=== PATIENT | female | born 1980 | race Caucasian/White ===

== ENCOUNTER 2017-08-14 21:25 | Emergency (ER) | payer MEDICAID ==
[2017-08-14 21:56] LABS: BILIRUBIN,URINE NEGATIVE (NEGATIVE); GLUCOSE, URINE (UA) NEGATIVE (NEGATIVE); KETONES,URINE (UA) NEGATIVE (NEGATIVE); LEUKOCYTE ESTERASE, URINE MODERATE (NEGATIVE); NITRITE,URINE POSITIVE (NEGATIVE); OCCULT BLOOD,URINE LARGE (NEGATIVE); PROTEIN,URINE >=300 mg/dL (NEGATIVE); UROBILINOGEN,URINE 0.2 (NORMAL) E.U./dL (NORMAL)
[2017-08-14 22:00] LABS: CLARITY,URINE CLOUDY (CLEAR)
[2017-08-14 22:01] LABS: HCG UR QUAL NEGATIVE
[2017-08-14] MEDS ORDERED: KETOROLAC 60 MG/2 ML VIAL IVP STA (22:03)
[2017-08-14] MEDS ORDERED: SODIUM CHLORIDE 0.9% 1,000 ML IV ONE (22:03)
[2017-08-14 22:05] LABS: BACTERIA,URINE Moderate /HPF (None Seen); RBC,URINE TNTC /HPF (0-5); SQUAMOUS EPITHELIAL CELL,UR RARE Squamous (<= Few)
--- NOTE | 2017-08-14 22:17 | ED Physician Documentation ---
PD HPI FEMALE - Stated complaint Stated Complaint: SIDE/BACK PX - Chief complaint Chief Complaint: Abd Pain - History obtained from History obtained from: Patient - History of Present Illness Timing - onset: Yesterday Timing - details: Gradual onset, Still present Associated symptoms: Pelvic pain, Urinary frequency Similar symptoms before: Work up / diagnostics Recently seen: Not recently seen - Additional information Additional information: Patient is a 36 year old female with a history of multiple stones who is presenting to the emergency department right sided pain. patient states that it has been going on for the last couple of days. Patient reports that it feel different than her previous stones but she had to have surgery on stones in the past. Review of Systems Constitutional: denies: Fever, Chills Eyes: reports: Reviewed and negative Ears: reports: Reviewed and negative Nose: reports: Reviewed and negative Throat: reports: Reviewed and negative Cardiac: reports: Reviewed and negative Respiratory: reports: Reviewed and negative GI: reports: Abdominal Pain. denies: Nausea, Vomiting : reports: Dysuria, Frequency, Hematuria Musculoskeletal: reports: Reviewed and negative Neurologic: reports: Reviewed and negative Immunocompromised: denies: Immunocompromised PD PAST MEDICAL HISTORY - Past Surgical History Past Surgical History: Yes - Present Medications Home Medications: Ambulatory Orders Medication Instructions Recorded Confirmed Levofloxacin [Levaquin] 750 mg PO DAILY #4 tablet 08/15/17 - Allergies Allergies/Adverse Reactions: Allergies Allergy/AdvReac Type Severity Reaction Status Date / Time No Known Drug Allergies Allergy Verified 08/14/17 22:36 - Social History Does the pt smoke?: Yes Smoking Status: Current every day smoker Does the pt drink ETOH?: No Does the pt have substance abuse?: No PD ED PE NORMAL - Vitals Vital signs reviewed: Yes - General General: Alert and oriented X 3 - HEENT HEENT: Atraumatic, PERRL - Neck Neck: Supple, no meningeal sign - Cardiac Cardiac: RRR, No murmur - Respiratory Respiratory: No respiratory distress - Derm Derm: Normal color, Warm and dry - Extremities Extremities: No deformity - Neuro Neuro: Alert and oriented X 3, No motor deficit Eye Opening: Spontaneous Motor: Obeys Commands Verbal: Oriented GCS Score: 15 - Psych Psych: Normal mood PD ED PE EXPANDED - HEENT HEENT: Dry mucous membranes - Abdomen Abdomen: Tender to palpation, RLQ. No: Rebound, Guarding Results - Vitals Vitals: Vital Signs - 24 hr 08/14/17 08/14/17 08/14/17 21:36 22:30 23:41 Temperature 36.0 C L Heart Rate 83 80 84 Respiratory 16 18 16 Rate Blood Pressure 144/95 H 135/82 H 135/65 H O2 Saturation 100 98 98 Oxygen O2 Source Room air - Labs Labs: Laboratory Tests 08/14/17 08/14/17 08/14/17 21:10 21:10 21:48 WBC 15.0 H RBC 5.08 Hgb 14.1 Hct 43.2 MCV 85.1 MCH 27.8 MCHC 32.7 RDW 14.7 Plt Count 217 MPV 7.3 L Neut # 12.4 H Lymph # 1.4 L [place] # 0.9 Eos # 0.2 Baso # 0.1 Absolute Nucleated RBC 0.00 Nucleated RBC % 0.0 Sodium 134 L Potassium 3.9 Chloride 104 Carbon Dioxide 23 Anion Gap 7.0 BUN 19 Creatinine 1.2 H Estimated GFR (MDRD) 51 L Glucose 107 H Calcium 10.2 Total Bilirubin 0.7 AST 21 ALT 22 Alkaline Phosphatase 54 Total Protein 7.1 Albumin 4.1 Globulin 3.0 Albumin/Globulin Ratio 1.4 Lipase 37 Urine Color YELLOW Urine Clarity CLOUDY Urine pH 6.0 Ur Specific [place] >=1.030 H Urine Protein >=300 H Urine Glucose (UA) NEGATIVE Urine Ketones NEGATIVE Urine Occult Blood LARGE H Urine Nitrite POSITIVE H Urine Bilirubin NEGATIVE Urine Urobilinogen 0.2 (NORMAL) Ur Leukocyte Esterase MODERATE H Urine RBC TNTC H Urine WBC >25 H Ur Squamous Epith Cells RARE Squamous Urine Bacteria Moderate H Ur Microscopic Review INDICATED Urine Culture Comments INDICATED Urine HCG, Qual 08/14/17 21:48 WBC RBC Hgb Hct MCV MCH MCHC RDW Plt Count MPV Neut # Lymph # [place] # Eos # Baso # Absolute Nucleated RBC Nucleated RBC % Sodium Potassium Chloride Carbon Dioxide Anion Gap BUN Creatinine Estimated GFR (MDRD) Glucose Calcium Total Bilirubin AST ALT Alkaline Phosphatase Total Protein Albumin Globulin Albumin/Globulin Ratio Lipase Urine Color Urine Clarity Urine pH Ur Specific [place] >=1.030 H Urine Protein Urine Glucose (UA) Urine Ketones Urine Occult Blood Urine Nitrite Urine Bilirubin Urine Urobilinogen Ur Leukocyte Esterase Urine RBC Urine WBC Ur Squamous Epith Cells Urine Bacteria Ur Microscopic Review Urine Culture Comments Urine HCG, Qual NEGATIVE - Rads (name of study) ct abdomen and pelvis Radiology: Final report received (right sided 5 by 6mm obstructing stone with hydro) PD MEDICAL DECISION MAKING - ED course Complexity details: reviewed old records, reviewed results, re-evaluated patient , considered differential, d/w patient, d/w family, d/w systems management consultant ED course: Patient was seen and examined at bedside. urine was collected and was consistent with urinary tract infection. Due to patient's history CT and blood work were ordered. Patient was treated with a fluid bolus and toradol. when patient returned from imaging patient was found to have a right sided obstructing stone. Patient was treated with a dose of levaquin and urology was consulted. Case was discussed with DR. Harry who recommended antibiotics and follow up in the office tomorrow. Patient felt comfortable with the plan. Patient was able to tolerate PO without difficulty. patient was stable for discharge with outpatient follow up. Departure - Departure Disposition: 01 Home, Self Care Clinical Impression: Urinary tract infectious disease, Kidney stones Instructions: ED Stone Renal W Colic Follow-Up: Ana Harry MD [Physician No Access] - Tomorrow Prescriptions: Levofloxacin [Levaquin] 750 mg PO DAILY #4 tablet Comments: Your symptoms today are being caused by a kidney stone causing obstructions and a urinary tract infection. You have been started on antibiotics tonight and you will take them once daily. It is important that you call Dr. Harry's office tomorrow to schedule a prompt follow up. You may return to the emergency department at any time for new, worsening or uncontrollable symptoms.
[2017-08-14 22:25] LABS: BASOPHILS # (AUTO) 0.1 10^3/uL (0.0-0.1); BASOPHILS % (AUTO) 0.4 %; EOSINOPHILS # (AUTO) 0.2 10^3/uL (0.0-0.7); EOSINOPHILS % (AUTO) 1.1 %; HGB - HEMOGLOBIN 14.1 g/dL (12.0-16.0); LYMPHOCYTES # (AUTO) 1.4 10^3/uL (1.5-3.5); LYMPHOCYTES % (AUTO) 9.6 %; MEAN CORPUSCULAR HEMOGLOBIN 27.8 pg (27.0-31.0); MEAN CORPUSCULAR HGB CONC 32.7 g/dL (32.0-36.0); MEAN CORPUSCULAR VOLUME 85.1 fL (81.0-99.0); MEAN PLATELET VOLUME 7.3 fL (7.9-10.8); MONOCYTES # (AUTO) 0.9 10^3/uL (0.0-1.0); MONOCYTES % (AUTO) 5.8 %; NEUTROPHILS # (AUTO) 12.4 10^3/uL (1.5-6.6); NEUTROPHILS % (AUTO) 83.1 %; PLT - PLATELET COUNT 217 10^3/uL (130-450); RED BLOOD COUNT 5.08 10^6/uL (4.20-5.40); RED CELL DISTRIBUTION WIDTH 14.7 % (12.0-15.0)
[2017-08-14 22:35] LABS: ALBUMIN 4.1 g/dL (3.2-5.5); ALBUMIN/GLOBULIN RATIO 1.4 (1.0-2.2); BILIRUBIN,TOTAL 0.7 mg/dL (0.2-1.0); CALCIUM 10.2 mg/dL (8.5-10.3); CREATININE 1.2 mg/dL (0.4-1.0); TOTAL PROTEIN 7.1 g/dL (6.7-8.2)
--- NOTE | 2017-08-14 22:45 | CT Report ---
EXAM: CT ABDOMEN AND PELVIS (CT KUB) EXAM DATE: 08/14/2017 10:29 PM. CLINICAL HISTORY: Multiple stones, left sided pain. COMPARISONS: None. TECHNIQUE: Routine axial helical CT imaging was performed through the abdomen and pelvis without IV c ontrast. Reconstructions: Coronal and sagittal. In accordance with CT protocol optimization, one or more of the following dose reduction techniques w ere utilized for this exam: automated exposure control, adjustment of mA and/or KV based on patient s ize, or use of iterative reconstructive technique. FINDINGS: Lung Bases: Mild bibasilar atelectasis. Right Kidney/Ureter: Nonobstructing 2 mm stone in the kidney, series 3 image 55. Moderate hydronephro sis and hydroureter with perinephric stranding. Ureteral stone just below the level of the iliac randall t measuring 6 x 5 mm, series 3 image 93. There are 2 small calcifications at the level of the sciatic notch, series 3 image 123 and 124. It is unclear whether either of these is in the ureter. Left Kidney/Ureter: No stones are seen in the kidney or ureter. No obstructive uropathy seen on the l eft. Other Solid Organs: Noncontrast images of the solid organs are grossly unremarkable. Gallbladder/Bile Ducts: Calcified stones in the gallbladder. No obvious cholecystitis. Peritoneal Cavity: No bowel obstruction seen. No diverticulitis. Moderate stool in the right hemicolo n. No lymphadenopathy seen. No free air or free fluid. Pelvic Organs: Right ovarian cyst measuring 2.4 cm. Left ovarian cyst measuring 7.7 x 6.3 cm. Visuali zed pelvic organs are otherwise unremarkable. Vasculature: Unremarkable. Other: None. IMPRESSION: 1. Severe obstructive uropathy on the right. There is a 6 x 5 mm ureteral stone just below the level of the iliac crest. There may be another smaller stone more distally in the ureter but this is not de finite. 2. Nonobstructing 2 mm stone in the right kidney. 3. No urolithiasis or obstructive uropathy seen on the left. 4. Left ovarian cyst measuring 7.7 x 6.3 cm. 5. Right ovarian cyst measuring 2.4 cm. 6. Calcified stones in the gallbladder without obvious cholecystitis. [facility] Referring Provider Line: [phone] SITE ID: [id number]
[2017-08-14] MEDS ORDERED: levoFLOXacin 750 MG/150 ML 750 MG/150 ML BAG IV STA (22:57)
[2017-08-15 00:49] VITALS: BP 133/77
== END 2017-08-15 00:50 | disposition home or self-care (01) ==
LOC: ED 21:25
DX: N39.0 Urinary tract infection, site not specified (principal); N13.2 Hydronephrosis with renal and ureteral calculous obstruction; F17.200 Nicotine dependence, unspecified, uncomplicated
CPT/HCPCS: 36415; 74176; 80053; 81001; 81003; 81025; 83690; 85025; 87086; 96361; 96365; 96375; 99284; 99285

== ENCOUNTER 2019-01-18 14:32 | Outpatient (CLI) | payer MEDICAID | END 2019-01-18 14:33 | disposition EMS.NT | LOC: EMS 14:32 | PROVIDERS: ATTEND Surgery | DX: M25.512 Pain in left shoulder (principal); V89.2XXA Person injured in unspecified motor-vehicle accident, traffic, initial encounter; Y92.410 Unspecified street and highway as the place of occurrence of the external cause ==

== ENCOUNTER 2020-03-28 17:33 | Emergency (ER) | payer MEDICAID ==
[2020-03-28] MEDS ORDERED: KETOROLAC 30 MG/ML VIAL IVP STA (18:01)
[2020-03-28] MEDS ORDERED: SODIUM CHLORIDE 0.9% 1,000 ML IV STA (18:01)
[2020-03-28 18:05] LABS: BILIRUBIN,URINE NEGATIVE (NEGATIVE); GLUCOSE, URINE (UA) NEGATIVE (NEGATIVE); KETONES,URINE (UA) NEGATIVE (NEGATIVE); LEUKOCYTE ESTERASE, URINE SMALL (NEGATIVE); NITRITE,URINE NEGATIVE (NEGATIVE); OCCULT BLOOD,URINE LARGE (NEGATIVE); PROTEIN,URINE TRACE mg/dL (NEGATIVE); UROBILINOGEN,URINE 1 (NORMAL) E.U./dL (NORMAL)
[2020-03-28 18:14] LABS: CLARITY,URINE HAZY (CLEAR)
--- NOTE | 2020-03-28 18:17 | ED Physician Documentation ---
PD HPI ABD PAIN - Stated complaint Stated Complaint: FLANK/BACK PX/FEMALE - Chief complaint Chief Complaint: Abd Pain - History obtained from History obtained from: Patient - History of Present Illness Timing - onset: How many days ago (4) Timing - duration: Days (4) Timing - details: Abrupt onset, Still present Quality: Sharp, Pain Location: RUQ Radiation: Right flank Improved by: Meds Worsened by: Other (nothing) Associated symptoms: Nausea. No: Fever, Vomiting, Diarrhea, Constipation Similar symptoms before: Diagnosis (ureterolithiasis) Recently seen: Emergency Dept - Additional information Additional information: 39-year-old female with a history of ureteral lithiasis has developed acute flank pain 4 days ago. She was seen at [facility] emergency department and given pain medication prior to being seen and when she was not seen in a timely fashion she left. She states that she has been having pain all weekend and pain is intolerable. She has an appointment to see her urologist on the of this month. She feels she cannot wait that long. She feels that the right side is "clogged ". Review of Systems Constitutional: denies: Fever Eyes: denies: Decreased vision Ears: denies: Ear pain Nose: denies: Congestion Throat: denies: Sore throat Cardiac: denies: Chest pain / pressure, Palpitations Respiratory: denies: Dyspnea, Cough GI: reports: Abdominal Pain, Nausea. denies: Vomiting : denies: Dysuria, Frequency Skin: denies: Rash Musculoskeletal: reports: Back pain. denies: Neck pain, Extremity pain PD PAST MEDICAL HISTORY - Past Surgical History Past Surgical History: Yes - Present Medications Home Medications: Ambulatory Orders Medication Instructions Recorded Confirmed levoFLOXacin [Levaquin] 750 mg PO DAILY #4 tablet 08/15/17 - Allergies Allergies/Adverse Reactions: Allergies Allergy/AdvReac Type Severity Reaction Status Date / Time No Known Drug Allergies Allergy Verified 03/28/20 17:42 - Social History Does the pt smoke?: Yes Smoking Status: Current every day smoker Does the pt drink ETOH?: No Does the pt have substance abuse?: No - Immunizations Immunizations are current?: Yes PD ED PE NORMAL - Vitals Vital signs reviewed: Yes (Hypertensive) - General General: Alert and oriented X 3, No acute distress, Well developed/nourished - HEENT HEENT: Atraumatic, PERRL, EOMI - Neck Neck: Supple, no meningeal sign, No bony TTP - Cardiac Cardiac: RRR, No murmur - Respiratory Respiratory: No respiratory distress, Clear bilaterally - Abdomen Abdomen: Normal bowel sounds, Soft, Non tender, Non distended, No organomegaly - Back Back: No CVA TTP, No spinal TTP - Derm Derm: Normal color, Warm and dry, No rash - Extremities Extremities: No deformity, No edema - Neuro Neuro: Alert and oriented X 3, 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, No motor deficit, No sensory deficit, Normal speech Eye Opening: Spontaneous Motor: Obeys Commands Verbal: Oriented GCS Score: 15 - Psych Psych: Normal mood, Normal affect Results - Vitals Vitals: Vital Signs - 24 hr 03/28/20 03/28/20 17:37 19:42 Temperature 37.2 C Heart Rate 98 82 Respiratory 20 16 Rate Blood Pressure 162/103 H 149/93 H O2 Saturation 100 100 Oxygen O2 Source Room air - Labs Labs: Laboratory Tests 03/28/20 03/28/20 03/28/20 17:49 18:10 18:10 WBC 10.4 RBC 4.59 Hgb 13.6 Hct 40.5 MCV 88.2 MCH 29.6 MCHC 33.6 RDW 13.0 Plt Count 279 MPV 8.8 Neut # (Auto) 7.7 H Lymph # (Auto) 1.5 [place] # (Auto) 0.9 Eos # (Auto) 0.2 Baso # (Auto) 0.0 Absolute Nucleated RBC 0.00 Nucleated RBC % 0.0 Sodium 135 Potassium 3.8 Chloride 102 Carbon Dioxide 24 Anion Gap 9.0 BUN 17 Creatinine 1.2 H Estimated GFR (MDRD) 50 L Glucose 96 Calcium 10.0 Total Bilirubin 0.9 AST 16 ALT 24 Alkaline Phosphatase 58 Total Protein 7.5 Albumin 3.7 Globulin 3.8 Albumin/Globulin Ratio 1.0 Lipase 40 Urine Color YELLOW Urine Clarity HAZY Urine pH 6.0 Ur Specific [place] 1.025 Urine Protein TRACE Urine Glucose (UA) NEGATIVE Urine Ketones NEGATIVE Urine Occult Blood LARGE H Urine Nitrite NEGATIVE Urine Bilirubin NEGATIVE Urine Urobilinogen 1 (NORMAL) Ur Leukocyte Esterase SMALL H Urine RBC 11-25 H Urine WBC >25 H Ur Squamous Epith Cells MANY Squamous H Urine Bacteria Moderate H Ur Microscopic Review INDICATED Urine Culture Comments NOT INDICATED Procedures - Bedside sono Bedside sono by EMP: With the use of bedside ultrasound the right kidney is imaged there is marked an d obvious hydronephrosis and hydroureter and this is mildly sonographically tender. PD MEDICAL DECISION MAKING - ED course Complexity details: reviewed old records, reviewed results, re-evaluated patient, considered differential, d/w patient, d/w family ED course: 39-year-old female with acute right ureteral lithiasis is administered saline and Toradol and a CT scan is ordered. She has marked hydro and an 8mm stone in the distal ureter. She has creatinine of 1.1 and a normal WBC and she responds to treatment with improvement in her pain. Her urine appears infected with >25WBC/hpf. At shift change care is turned over to Dr. Flowers with anticipation of consultation with urology.
[2020-03-28 18:19] LABS: BASOPHILS % (AUTO) 0.4 %; EOSINOPHILS # (AUTO) 0.2 10^3/uL (0.0-0.7); EOSINOPHILS % (AUTO) 1.8 %; HGB - HEMOGLOBIN 13.6 g/dL (12.0-16.0); LYMPHOCYTES # (AUTO) 1.5 10^3/uL (1.5-3.5); LYMPHOCYTES % (AUTO) 14.4 %; MEAN CORPUSCULAR HEMOGLOBIN 29.6 pg (27.0-31.0); MEAN CORPUSCULAR HGB CONC 33.6 g/dL (32.0-36.0); MEAN CORPUSCULAR VOLUME 88.2 fL (81.0-99.0); MEAN PLATELET VOLUME 8.8 fL (7.9-10.8); MONOCYTES # (AUTO) 0.9 10^3/uL (0.0-1.0); MONOCYTES % (AUTO) 8.8 %; NEUTROPHILS # (AUTO) 7.7 10^3/uL (1.5-6.6); NEUTROPHILS % (AUTO) 74.1 %; PLT - PLATELET COUNT 279 10^3/uL (130-450); RED BLOOD COUNT 4.59 10^6/uL (4.20-5.40); WHITE BLOOD COUNT 10.4 x10^3/uL (4.8-10.8)
[2020-03-28 18:25] LABS: BACTERIA,URINE Moderate /HPF (None Seen); SQUAMOUS EPITHELIAL CELL,UR MANY Squamous (<= Few)
[2020-03-28 18:32] LABS: ALBUMIN 3.7 g/dL (3.2-5.5); BILIRUBIN,TOTAL 0.9 mg/dL (0.2-1.0); CREATININE 1.2 mg/dL (0.4-1.0); TOTAL PROTEIN 7.5 g/dL (6.7-8.2)
--- NOTE | 2020-03-28 20:04 | CT Report ---
PROCEDURE: Abdomen/Pelvis WO INDICATIONS: suspected R sided stone marked hydro on bedside TECHNIQUE: Noncontrast 5 mm thick sections acquired from the diaphragms to the symphysis. 5 mm coronal and sagi ttal reformats were then performed. For radiation dose reduction, the following was used: automated exposure control, adjustment of mA and/or kV according to patient size. COMPARISON: CT abdomen pelvis 08/14/2017. FINDINGS: Image quality: Excellent. ABDOMEN: Lung bases: There is mild dependent atelectasis bilaterally. Heart size is normal. Solid organs: Noncontrast evaluation of liver demonstrates no focal hepatic lesions. There is a calc ified gallstone in the gallbladder without wall thickening or pericholecystic fluid. Slightly increas ed density within the gallbladder lumen is suggestive of biliary sludge. Pancreas is normal in contou rs. There is nodular thickening of the left adrenal gland which appears similar to the prior study. There is severe right hydroureteronephrosis. The distal right ureter is not well visualized due to ad jacent bowel loops but there is a calcification in the right pelvis measuring up to 8 mm suggestive o f a distal obstructing stone. This demonstrates attenuation values of approximately 2048-0318 Hounsfi eld units. There is associated perinephric and perirenal fat stranding as well as marked right cortic al thinning. Left kidney demonstrates no hydronephrosis or left renal stones. Left ureter is nondiste nded. Peritoneum and bowel: Unenhanced bowel loops demonstrate normal wall thickness and caliber. No free fluid or air. Nodes and vessels: No retroperitoneal or mesenteric adenopathy by size criteria. There are prominen t retroperitoneal lymph nodes measuring up to 0.9 cm. Aorta and inferior vena cava are normal in iva cj. Miscellaneous: No ventral hernias. PELVIS: Genitourinary: Bladder wall thickness is normal. There is a large thin-walled cysts redemonstrated w ithin the left hemipelvis measuring up to approximately 6.9 x 5.7 cm. Miscellaneous: No inguinal hernias or adenopathy. Bones: No suspicious bony lesions. No vertebral body compression fractures. IMPRESSION: 1. Severe right hydronephrosis with a possible 8 mm distal ureteral obstructing stone in the right he mipelvis. However, evaluation is limited due to adjacent bowel loops in the pelvis. 2. Marked right renal cortical thinning. Given the severe hydronephrosis seen on prior CT, the findin gs are suggestive of a chronic or recurrent obstruction. Consider follow-up evaluation with CT IVP. 3. Large cystic lesion redemonstrated in the left hemipelvis. This appears similar in size compared t o the prior study. Consider follow-up evaluation with pelvic ultrasound. 4. Cholelithiasis without evidence of cholecystitis. Reviewed by: Haider Chisholm MD on 03/28/2020 8:03 PM PST Approved by: Haider Chisholm MD on 03/28/2020 8:03 PM PST Station ID: [id number]
--- NOTE | 2020-03-28 20:23 | ED Physician Documentation ---
ED Addendum - Addendum Addendum: 03/28/20 20:21 Patient endorsed to me by Dr. Rajput pending urology recommendations. D[facility]ed [facility] urologyp[facility] with stable GFR and creatinine. 8 mm stone with moderate hydronephrosis with urinary tract infection. Per Dr. Wallace recommendations, okay to discharge on outpatient antibiotics and Flomax. Patient will need to follow-up in clinic for lithotripsy.Discussed with patient who is aware for need for follow-up. Strict return precautions given.
[2020-03-28 20:40] VITALS: BP 155/99
== END 2020-03-28 20:40 | disposition home or self-care (01) ==
LOC: ED 17:33
DX: N13.2 Hydronephrosis with renal and ureteral calculous obstruction (principal); N39.0 Urinary tract infection, site not specified; R03.0 Elevated blood-pressure reading, without diagnosis of hypertension; F17.200 Nicotine dependence, unspecified, uncomplicated
CPT/HCPCS: 36415; 74176; 80053; 81001; 81003; 83690; 85025; 87086; 96361; 96374; 99284

== ENCOUNTER 2020-04-09 03:27 | Emergency (ER) | payer MEDICAID ==
--- NOTE | 2020-04-09 03:56 | ED Physician Documentation ---
PD HPI ABD PAIN - Stated complaint Stated Complaint: ABD PAIN - Chief complaint Chief Complaint: Abd Pain - History obtained from History obtained from: Patient - History of Present Illness Timing - onset: How many hours ago (1) Timing - duration: Hours (1) Timing - details: Abrupt onset, Constant (gradually improving since onset) Pain level max: 8 Pain level now: 2 Quality: Pain Location: RUQ Radiation: Other (no radiation) Improved by: Other (no ameliorating factors) Worsened by: Other (no exacerbating factors) Associated symptoms: Nausea. No: Fever, Vomiting Recently seen: Emergency Dept (T+R 03/28/2020 for right flank pain, CT demonstrated large right ureteral stone with severe hydronephrosis. also noted were gallstone and left pelvic cyst. Patient says the pain tonight is not the same in location nor of the same quality/character) Review of Systems Constitutional: denies: Fever, Chills, Sweats Cardiac: reports: Reviewed and negative Respiratory: reports: Reviewed and negative GI: reports: Abdominal Pain, Nausea. denies: Vomiting, Constipation, Diarrhea : denies: Dysuria, Frequency, Hematuria PD PAST MEDICAL HISTORY - Past Medical History Past Medical History: Yes GI: Cholelithiasis, Other : Kidney stones Other Past Medical History: gall stones, kidney stones - Past Surgical History Past Surgical History: Yes - Present Medications Home Medications: Ambulatory Orders Medication Instructions Recorded Confirmed No Known Home Medications 04/09/20 04/09/20 - Allergies Allergies/Adverse Reactions: Allergies Allergy/AdvReac Type Severity Reaction Status Date / Time No Known Drug Allergies Allergy Verified 04/09/20 03:33 - Social History Does the pt smoke?: Yes Smoking Status: Current every day smoker Does the pt drink ETOH?: No Does the pt have substance abuse?: Yes Substance Use and Type: Marijuana - Immunizations Immunizations are current?: Yes PD ED PE NORMAL - Vitals Vital signs reviewed: Yes - General General: Alert and oriented X 3, No acute distress, Well developed/nourished - Cardiac Cardiac: RRR, No murmur - Respiratory Respiratory: No respiratory distress, Clear bilaterally - Abdomen Abdomen: Soft, Non distended, Other (mild RUQ tenderness without rebound or guarding) - Back Back: No CVA TTP Results - Vitals Vitals: Oxygen O2 Source Room air - Labs Labs: Laboratory Tests 04/09/20 04/09/20 04/09/20 03:35 03:56 03:56 WBC 11.0 H RBC 4.87 Hgb 14.0 Hct 43.2 MCV 88.7 MCH 28.7 MCHC 32.4 RDW 13.0 Plt Count 400 MPV 8.9 Neut # (Auto) 7.7 H Lymph # (Auto) 2.6 [place] # (Auto) 0.5 Eos # (Auto) 0.2 Baso # (Auto) 0.0 Absolute Nucleated RBC 0.00 Nucleated RBC % 0.0 Sodium 139 Potassium 3.8 Chloride 103 Carbon Dioxide 23 Anion Gap 13.0 BUN 18 Creatinine 1.3 H Estimated GFR (MDRD) 46 L Glucose 106 H Calcium 9.9 Total Bilirubin 0.5 AST 20 ALT 25 Alkaline Phosphatase 65 Total Protein 7.5 Albumin 3.8 Globulin 3.7 Albumin/Globulin Ratio 1.0 Lipase 23 Urine Color YELLOW Urine Clarity CLEAR Urine pH 8.0 H Ur Specific [place] 1.020 Urine Protein NEGATIVE Urine Glucose (UA) NEGATIVE Urine Ketones NEGATIVE Urine Occult Blood NEGATIVE Urine Nitrite NEGATIVE Urine Bilirubin NEGATIVE Urine Urobilinogen 0.2 (NORMAL) Ur Leukocyte Esterase NEGATIVE Ur Microscopic Review NOT INDICATED Urine Culture Comments NOT INDICATED - Rads (name of study) CT A/P Radiology: Prelim report reviewed, See rad report RUQ US Radiology: Prelim report reviewed, See rad report PD MEDICAL DECISION MAKING - ED course Complexity details: reviewed results, re-evaluated patient, considered differential, d/w patient ED course: patient's pain had improved significantly prior to this evaluation, although she describes 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 She declined pain medication. CT demonstrates no evidence of the 8mm right ureteral calculus seen on previous study as well as significant improvement in the right-sided hydroureter and hydronephrosis. Her symptom location/HPI is s/o biliary colic which can be evaluated in outpatient setting at this point provided symptoms do not recur. Departure - Departure Disposition: 01 Home, Self Care Clinical Impression: Biliary colic Condition: Good Instructions: ED Gallstone W Biliary Colic Follow-Up: Bakari Cruz MD [Provider Admit Priv/Credential] - Discharge Date/Time: 04/09/20 07:00
[2020-04-09 04:40] LABS: BASOPHILS % (AUTO) 0.4 %; EOSINOPHILS # (AUTO) 0.2 10^3/uL (0.0-0.7); EOSINOPHILS % (AUTO) 1.5 %; LYMPHOCYTES # (AUTO) 2.6 10^3/uL (1.5-3.5); LYMPHOCYTES % (AUTO) 23.3 %; MEAN CORPUSCULAR HEMOGLOBIN 28.7 pg (27.0-31.0); MEAN CORPUSCULAR HGB CONC 32.4 g/dL (32.0-36.0); MEAN CORPUSCULAR VOLUME 88.7 fL (81.0-99.0); MEAN PLATELET VOLUME 8.9 fL (7.9-10.8); MONOCYTES # (AUTO) 0.5 10^3/uL (0.0-1.0); MONOCYTES % (AUTO) 4.5 %; NEUTROPHILS # (AUTO) 7.7 10^3/uL (1.5-6.6); NEUTROPHILS % (AUTO) 69.7 %; PLT - PLATELET COUNT 400 10^3/uL (130-450); RED BLOOD COUNT 4.87 10^6/uL (4.20-5.40)
[2020-04-09 04:49] LABS: BILIRUBIN,URINE NEGATIVE (NEGATIVE); GLUCOSE, URINE (UA) NEGATIVE (NEGATIVE); KETONES,URINE (UA) NEGATIVE (NEGATIVE); LEUKOCYTE ESTERASE, URINE NEGATIVE (NEGATIVE); NITRITE,URINE NEGATIVE (NEGATIVE); OCCULT BLOOD,URINE NEGATIVE (NEGATIVE); PROTEIN,URINE NEGATIVE (NEGATIVE); UROBILINOGEN,URINE 0.2 (NORMAL) E.U./dL (NORMAL)
[2020-04-09 04:50] LABS: CLARITY,URINE CLEAR (CLEAR)
[2020-04-09 04:50] LABS: ALBUMIN 3.8 g/dL (3.2-5.5); BILIRUBIN,TOTAL 0.5 mg/dL (0.2-1.0); CALCIUM 9.9 mg/dL (8.5-10.3); CREATININE 1.3 mg/dL (0.4-1.0); TOTAL PROTEIN 7.5 g/dL (6.7-8.2)
[2020-04-09 07:10] VITALS: BP 152/100
--- NOTE | 2020-04-09 07:37 | CT Report ---
PROCEDURE: Abdomen/Pelvis WO INDICATIONS: RUQ pain, recent CT showed severe right hydro, TECHNIQUE: Noncontrast 5 mm thick sections acquired from the diaphragms to the symphysis. 5 mm coronal and sagi ttal reformats were then performed. For radiation dose reduction, the following was used: automated exposure control, adjustment of mA and/or kV according to patient size. COMPARISON: 03/28/2020 FINDINGS: Image quality: Excellent. ABDOMEN: Lung bases: Lung bases are clear. Heart size is normal. Solid organs: Liver and spleen are normal in size. Gallbladder is distended and contains a few ston es dependently layering, some of the fundus, some possibly in the neck, the largest peripherally calc ified measures about 2 cm. No visible choledocholithiasis. Pancreas is normal in contours. No adren al nodules. The right kidney is relatively diminutive. There has been decrease and prior right hydronephrosis wit h mild to moderate persistent right hydroureter and urothelial thickening. Interval passage of right distal ureteral stone. No left intrarenal calculi. Peritoneum and bowel: Unenhanced bowel loops demonstrate normal wall thickness and caliber. Increas ed quantity of dense stool throughout the colon. The appendix appears normal. No free fluid or air. Nodes and vessels: No retroperitoneal or mesenteric adenopathy by size criteria. Aorta and inferior vena cava are normal in caliber. Miscellaneous: No ventral hernias. PELVIS: Genitourinary: Bladder wall thickness is normal. Retroverted uterus. Left adnexal cystic mass decre ased size measuring 6.0 cm, previously 7.8 cm. Miscellaneous: No inguinal hernias or adenopathy. Bones: No suspicious bony lesions. No vertebral body compression fractures. IMPRESSION: 1. Interval passage of right ureteral calculus and decreased right hydronephrosis. 2. Cholelithiasis without CT findings of acute cholecystitis. 3. Increased quantity of colonic stool. 4. Decreased size of left adnexal cystic mass, presumably ovarian. 5. Concordant with preliminary report. Reviewed by: Emilie Kenny MD on 04/09/2020 7:36 AM PST Approved by: Emilie Kenny MD on 04/09/2020 7:36 AM PST Station ID: [id number]
--- NOTE | 2020-04-09 07:43 | Ultrasound Report ---
PROCEDURE: Abdomen Limited INDICATIONS: RUQ pain TECHNIQUE: Real-time focused scanning was performed of the abdomen, with image documentation. COMPARISON: Correlation made to CT scan performed the same day. FINDINGS: The liver is at the upper limits of normal in size measuring 18.7 cm in length. Mildly hyp erechoic hepatic parenchyma. No discrete mass. The gallbladder contains a 2.2 cm stone in the fundus and a moderate amount of sludge. The gallbladde r wall is at the upper limits of normal in thickness measuring 3.3 cm maximally, likely an over measu rement. The common hepatic duct is enlarged at 10.9 mm, however the common bile duct is normal calibe r at 6.5 mm. No visible choledocholithiasis on this exam. No pericholecystic fluid and no sonographic Shaw's sign. The right kidney is diminutive. The cortex is echogenic and there is mild hydronephrosis as seen by C T. The visible portion of the proximal pancreas is normal. IMPRESSION: 1. Cholelithiasis and sludge without convincing sonographic signs of acute cholecystitis. 2. Dilated common hepatic duct normal caliber common bile duct. This is nonspecific and potentially p hysiologic 3.. Hyperechoic and mildly enlarged liver suggesting mild hepatic steatosis or other intrinsic liver disease. 4. Chronically diminutive right kidney with decreasing right hydronephrosis. 5. Concordant with preliminary report. Reviewed by: Emilie Kenny MD on 04/09/2020 7:42 AM PST Approved by: Emilie Kenny MD on 04/09/2020 7:42 AM PST Station ID: [id number]
== END 2020-04-09 07:00 | disposition home or self-care (01) ==
LOC: ED 03:27
DX: K80.50 Calculus of bile duct without cholangitis or cholecystitis without obstruction (principal); F17.200 Nicotine dependence, unspecified, uncomplicated
CPT/HCPCS: 36415; 74176; 76705; 80053; 81001; 81003; 83690; 85025; 87086; 99284

== ENCOUNTER 2020-10-10 19:14 | Inpatient (IN) | payer MEDICAID ==
[2020-10-10 19:35] LABS: BILIRUBIN,URINE NEGATIVE (NEGATIVE); GLUCOSE, URINE (UA) NEGATIVE (NEGATIVE); KETONES,URINE (UA) NEGATIVE (NEGATIVE); LEUKOCYTE ESTERASE, URINE SMALL (NEGATIVE); NITRITE,URINE POSITIVE (NEGATIVE); OCCULT BLOOD,URINE MODERATE (NEGATIVE); PROTEIN,URINE 30 mg/dL (NEGATIVE); UROBILINOGEN,URINE 0.2 (NORMAL) E.U./dL (NORMAL)
[2020-10-10 19:38] LABS: CLARITY,URINE CLOUDY (CLEAR); HCG UR QUAL NEGATIVE
[2020-10-10 19:45] LABS: BACTERIA,URINE Many /HPF (None Seen); SQUAMOUS EPITHELIAL CELL,UR FEW Squamous (<= Few); WBC,URINE >25 /HPF (0-5)
[2020-10-10 19:54] LABS: BASOPHILS # (AUTO) 0.1 10^3/uL (0.0-0.1); BASOPHILS % (AUTO) 0.3 %; EOSINOPHILS % (AUTO) 0.1 %; HCT - HEMATOCRIT 47.4 % (37.0-47.0); HGB - HEMOGLOBIN 15.6 g/dL (12.0-16.0); LYMPHOCYTES # (AUTO) 0.9 10^3/uL (1.5-3.5); LYMPHOCYTES % (AUTO) 4.6 %; MEAN CORPUSCULAR HEMOGLOBIN 28.9 pg (27.0-31.0); MEAN CORPUSCULAR HGB CONC 32.9 g/dL (32.0-36.0); MEAN CORPUSCULAR VOLUME 87.9 fL (81.0-99.0); MONOCYTES # (AUTO) 0.9 10^3/uL (0.0-1.0); NEUTROPHILS # (AUTO) 16.6 10^3/uL (1.5-6.6); NEUTROPHILS % (AUTO) 89.2 %; PLT - PLATELET COUNT 240 10^3/uL (130-450); RED BLOOD COUNT 5.39 10^6/uL (4.20-5.40); RED CELL DISTRIBUTION WIDTH 13.6 % (12.0-15.0); WHITE BLOOD COUNT 18.6 x10^3/uL (4.8-10.8)
[2020-10-10] MEDS ORDERED: SODIUM CHLORIDE 0.9% 1,000 ML IV STA ×2 (19:57→21:43)
[2020-10-10] MEDS ORDERED: cefTRIAXone 1 GM in SODIUM CHLORIDE 0.9% MINIBAG 100 ML IV STA (19:57)
--- NOTE | 2020-10-10 20:00 | ED Physician Documentation ---
History of Present Illness - Stated complaint Stated Complaint: CHILLS/FEVER/EXCESSIVE URINATION - Chief complaint Chief Complaint: Abd Pain - History obtained from History obtained from: Patient, Family - History of Present Illness Timing: How many days ago (3) - Additonal information Additional information: 40-year-old female has developed urinary urgency frequency dysuria and foul- smelling urine and she has developed left-sided flank pain. She had an episode of flank pain lasting 5 to 6 hours 2 days ago. She said this was similar to what she is had previously with kidney stone. 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 She does have chills which have made her emotional. She does not know if she has had a fever. Review of Systems Constitutional: reports: Chills, Myalgias, Fatigue. denies: Fever Eyes: denies: Decreased vision Ears: denies: Ear pain Nose: denies: Congestion Throat: denies: Sore throat Cardiac: denies: Chest pain / pressure, Palpitations Respiratory: denies: Dyspnea GI: reports: Abdominal Pain, Nausea. denies: Vomiting : reports: Dysuria, Frequency Skin: denies: Rash Musculoskeletal: reports: Back pain. denies: Neck pain, Extremity pain Neurologic: denies: Generalized weakness, Focal weakness, Numbness PD PAST MEDICAL HISTORY - Past Medical History GI: Cholelithiasis, Other : Kidney stones - Past Surgical History Past Surgical History: Yes - Present Medications Home Medications: Ambulatory Orders Medication Instructions Recorded Confirmed Lisinopril [Prinivil] 5 mg PO DAILY 10/10/20 10/10/20 - Allergies Allergies/Adverse Reactions: Allergies Allergy/AdvReac Type Severity Reaction Status Date / Time No Known Drug Allergies Allergy Verified 04/09/20 03:33 - Social History Does the pt smoke?: Yes Smoking Status: Current every day smoker Does the pt drink ETOH?: No Does the pt have substance abuse?: Yes - Immunizations Immunizations are current?: Yes PD ED PE NORMAL - Vitals Vital signs reviewed: Yes (Tachycardic and hypotensive with wide pulse pressure) - General General: Alert and oriented X 3, Well developed/nourished, Other (The patient appears emotionally distraught) - HEENT HEENT: Atraumatic, PERRL, EOMI - Neck Neck: Supple, no meningeal sign, No bony TTP - Cardiac Cardiac: No murmur, Other (Tachycardic to 120) - Respiratory Respiratory: No respiratory distress - Abdomen Abdomen: Soft, Non tender - Back Back: No CVA TTP, No spinal TTP - Derm Derm: Normal color, Warm and dry, No rash - Extremities Extremities: No deformity, No edema - Neuro Neuro: Alert and oriented X 3, marketing underwriter 2-12 intact, No motor deficit, No sensory deficit, Normal speech Eye Opening: Spontaneous Motor: Obeys Commands Verbal: Oriented GCS Score: 15 - Psych Psych: Normal affect, Other (The mood is anxious) Results - Vitals Vitals: Vital Signs - 24 hr 10/10/20 10/10/20 10/10/20 19:22 20:00 20:51 Temperature 37.6 C 38.2 C H Heart Rate 123 H 117 H 109 H Respiratory 19 32 H 22 Rate Blood Pressure 104/52 L 129/93 H 125/73 O2 Saturation 100 98 98 10/10/20 10/10/20 21:30 23:00 Temperature 38.1 C H 38.1 C H Heart Rate 108 H 109 H Respiratory 29 H 28 H Rate Blood Pressure 131/72 H 144/80 H O2 Saturation 98 98 Oxygen O2 Source Room air - Labs Labs: Laboratory Tests 10/10/20 10/10/20 10/10/20 19:20 19:40 19:40 WBC 18.6 H RBC 5.39 Hgb 15.6 Hct 47.4 H MCV 87.9 MCH 28.9 MCHC 32.9 RDW 13.6 Plt Count 240 MPV 9.0 Neut # (Auto) 16.6 H Lymph # (Auto) 0.9 L [place] # (Auto) 0.9 Eos # (Auto) 0.0 Baso # (Auto) 0.1 Absolute Nucleated RBC 0.00 Nucleated RBC % 0.0 PT INR APTT Sodium 133 L Potassium 3.8 Chloride 98 L Carbon Dioxide 22 Anion Gap 13.0 BUN 11 Creatinine 1.4 H Estimated GFR (MDRD) 42 L Glucose 133 H Lactic Acid Calcium 10.8 H Total Bilirubin 1.3 H AST 24 ALT 32 Alkaline Phosphatase 69 Total Protein 8.5 H Albumin 4.3 Globulin 4.2 Albumin/Globulin Ratio 1.0 Lipase 16 L CA 125 Antigen Urine Color YELLOW Urine Clarity CLOUDY Urine pH 6.0 Ur Specific Vian 1.025 Urine Protein 30 H Urine Glucose (UA) NEGATIVE Urine Ketones NEGATIVE Urine Occult Blood MODERATE H Urine Nitrite POSITIVE H Urine Bilirubin NEGATIVE Urine Urobilinogen 0.2 (NORMAL) Ur Leukocyte Esterase SMALL H Urine RBC 6-10 H Urine WBC >25 H Ur Squamous Epith Cells FEW Squamous Urine Bacteria Many H Ur Microscopic Review INDICATED Urine Culture Comments INDICATED Urine HCG, Qual NEGATIVE 10/10/20 10/10/20 10/10/20 19:40 19:40 20:28 WBC RBC Hgb Hct MCV MCH MCHC RDW Plt Count MPV Neut # (Auto) Lymph # (Auto) [place] # (Auto) Eos # (Auto) Baso # (Auto) Absolute Nucleated RBC Nucleated RBC % PT 14.8 H INR 1.4 H APTT 28.1 Sodium Potassium Chloride Carbon Dioxide Anion Gap BUN Creatinine Estimated GFR (MDRD) Glucose Lactic Acid 1.0 Calcium Total Bilirubin AST ALT Alkaline Phosphatase Total Protein Albumin Globulin Albumin/Globulin Ratio Lipase CA 125 Antigen 29.8 Urine Color Urine Clarity Urine pH Ur Specific Vian Urine Protein Urine Glucose (UA) Urine Ketones Urine Occult Blood Urine Nitrite Urine Bilirubin Urine Urobilinogen Ur Leukocyte Esterase Urine RBC Urine WBC Ur Squamous Epith Cells Urine Bacteria Ur Microscopic Review Urine Culture Comments Urine HCG, Qual - Rads (name of study) pelvic u/s Radiology: Prelim report reviewed (Impression: Complex bilateral ovarian cyst. This could represent endometriomas versus hemorrhagic cyst.), EMP read indepedently, See rad report Procedures - Bedside sono Bedside sono by EMP: With use bedside ultrasound the left kidney is imaged it is sonographically nontender and there is evidence of obvious hydronephrosis. - IVC sono (time) 1949 Bedside IVC sono: IVC measures (cm) (0.66), Dehydration (est 2-3 liter deficit) PD MEDICAL DECISION MAKING - ED course Complexity details: reviewed old records, reviewed results, re-evaluated patient, considered differential, d/w patient ED course: 40-year-old female with acute febrile illness with resolved left flank pain has elevated white count obvious infection of the urine and evidence of hydronephrosis to the left kidney on bedside ultrasound examination. She has a history of stone producing. A CT scan of the abdomen pelvis is undertaken to evaluate the possibility of stone causing the obstruction. The CT shows: CT ab/pel without: Impression: 1. Marked enlargement of the left adnexal cyst and relatively short period of time. Previously measured approximately 5 cm in diameter, now measures 10.7 cm in maximum diameter. 2. Interval development of moderate left hydronephrosis and hydroureter, likely secondary to extrinsic obstruction by this left adnexal cyst. 3. Interval increase in size of right adnexal cyst, measuring 4.9 cm in maximum diameter. 4. Small, shrunken right kidney with resolution of hydronephrosis. 5. Gallbladder neck stones with gallbladder distention and without gallbladder wall thickening. 6. Diffuse hepatic steatosis. 7. Mild hepatomegaly. 8. Interval development of borderline splenomegaly.Bilaterally Dr. Pro DIGITAL MARKETING INTERN has been consulted in the case and recommends a pelvic ultrasound be done with results above showing Bilateral complex ovarian cysts with the left being 10 x 8.4 x 9 cm and differential including endometrioma versus hemorrhagic cyst.Dr. Pro was consulted again following the results of the pelvic ultrasound and she recommends admission to the hospital for treatment of sepsis and consideration for surgery when her sepsis is improved. She is uncertain that the pelvic mass is are the cause of her hydronephrosis on the left side. Dr. Toan Ledbetter was consulted in the case and agrees to treat the patient's sepsis. In the emergency department the patient did receive 2 L of normal saline and 1 g of Rocephin intravenously Departure - Departure Disposition: 66 [facility] DC/Xfer Clinical Impression: Urinary tract infectious disease, Pelvic mass in female Sepsis Qualifiers: Sepsis type: sepsis due to unspecified organism Sepsis acute organ dysfunction status: with acute organ dysfunction Severe sepsis acute organ dysfunction type: acute renal failure Acute renal failure type: unspecified Severe sepsis shock status: without septic shock Qualified Code(s): A41.9 - Sepsis, unspecified organism Discharge Date/Time: 10/11/20 01:21
[2020-10-10 20:06] LABS: ALBUMIN 4.3 g/dL (3.2-5.5); BILIRUBIN,TOTAL 1.3 mg/dL (0.2-1.0); CALCIUM 10.8 mg/dL (8.5-10.3); CREATININE 1.4 mg/dL (0.4-1.0); POTASSIUM 3.8 mmol/L (3.5-5.0); TOTAL PROTEIN 8.5 g/dL (6.7-8.2)
[2020-10-10] MEDS ORDERED: cefTRIAXone 1 GM VIAL ONE (20:06)
[2020-10-10] MEDS ORDERED: ACETAMINOPHEN 325 MG TABLET PO STA (20:41)
--- NOTE | 2020-10-10 20:51 | CT Report ---
PROCEDURE: Abdomen/Pelvis WO INDICATIONS: L flank pain TECHNIQUE: Noncontrast 5 mm thick sections acquired from the diaphragms to the symphysis. 5 mm coronal and sagi ttal reformats were then performed. For radiation dose reduction, the following was used: automated exposure control, adjustment of mA and/or kV according to patient size. COMPARISON: Noncontrast CT of the abdomen and pelvis dated 04/09/2020. FINDINGS: Image quality: Excellent. ABDOMEN: Lung bases: Lung bases are clear. Heart size is normal. Solid organs: Diffuse hepatic steatosis. Mild hepatomegaly. Borderline splenomegaly. Spleen is slight ly larger than on the prior study. Gallbladder is again noted to contain stones in the gallbladder ne ck. The gallbladder is distended. There is no gallbladder wall thickening or fluid around the gallbla dder. Pancreas is normal in contours. No adrenal nodules. Right kidney: Small and shrunken. There is no longer hydronephrosis or hydroureter. Left kidney: Interval development of mild to moderate hydronephrosis and hydroureter. No ureteral sto ne identified. The distal ureter may be obstructed by a large left adnexal cyst which has either deve loped or has become significantly larger than on the previous study. Peritoneum and bowel: Unenhanced bowel loops demonstrate normal wall thickness and caliber. No free fluid or air. Nodes and vessels: No retroperitoneal or mesenteric adenopathy by size criteria. Aorta and inferior vena cava are normal in caliber. Miscellaneous: No ventral hernias. PELVIS: Genitourinary: Bladder wall thickness is normal. Miscellaneous: No inguinal hernias or adenopathy. A very large left adnexal cyst is now present. It appears to have been present on the previous study, measuring approximately 5 cm maximum diameter at that time. Currently it measures 10.3 x 9.2 x 10.7 cm. A right adnexal cyst has increased in size sin ce the previous study, and now measures 4.9 cm in diameter. Bones: No suspicious bony lesions. No vertebral body compression fractures. IMPRESSION: 1. Marked enlargement of the left adnexal cyst and a relatively short period of time. It previously m easured approximately 5 cm in diameter, and now measures 10.7 cm in maximum diameter. 2. Interval development of moderate left hydronephrosis and hydroureter, likely secondary to extrinsi c obstruction by this left adnexal cyst. 3. Interval increase in size of a right adnexal cyst, measuring 4.9 cm in maximum diameter. 4. Small, shrunken right kidney with resolution of hydronephrosis. 5. Gallbladder neck stones with gallbladder distention without gallbladder wall thickening. 6. Diffuse hepatic steatosis. 7. Mild hepatomegaly. 8. Interval development of borderline splenomegaly. Reviewed by: Cain Madrigal MD on 10/10/2020 8:49 PM PDT Approved by: Cain Madrigal MD on 10/10/2020 8:49 PM PDT Station ID: [id number]
[2020-10-10 21:19] LABS: INR 1.4 (0.8-1.2); PT - PROTHROMBIN TIME 14.8 secs (9.9-12.6)
[2020-10-10 21:26] LABS: PARTIAL THROMBOPLASTIN TIME 28.1 secs (24.9-33.3)
[2020-10-10] MEDS ORDERED: KETOROLAC 30 MG/ML VIAL IVP STA (23:10)
[2020-10-11] MEDS ORDERED: SODIUM CHLORIDE FLUSH 0.9% 10 ML SYRINGE IVP PRN (00:49)
[2020-10-11] MEDS ORDERED: ONDANSETRON 4 MG/2 ML VIAL IVP PRN (00:49)
[2020-10-11] MEDS ORDERED: HYDROcod/ACETAM 5/325 MG TABLET PO PRN (00:49)
--- NOTE | 2020-10-11 00:56 | HISTORY & PHYSICAL EXAMINATION ---
Chief Complaint - Chief Complaint Chief Complaint: chills, left flank pain History of Present Illness - Admitted From Admitted From:: [facility] ED - History Obtained From Records Reviewed: yes History obtained from: patient - History of Present Illness HPI Comment/Other: Patient is a 40-year-old female with medical history significant for hype rtension, history of kidney stones who presented to the ED with complaint of left flank pain and chills for the past 3 days. She has also been experiencing some urgency. Work-up in the ED showed a white blood cell count of 18.6. She had a temperature of 38.2 and was tachycardic with a heart rate of 117. Further work-up included a UA which was indicative of a UTI. As a result she was presented for admission for further treatment. At bedside she denies chest pain, dyspnea, abdominal pain, nausea, vomiting. Rest of her history is unremarkable. She had a CT of the abdomen/pelvis which was negative for stone but showed a large left adnexal/ovarian cyst measuring 10.7 cm in diameter. There was also a moderate amount of hydronephrosis on the left side thought to be secondary to obstruction by the cyst. 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 - Family & Social History Family History Comment/Other: Patient denied any significant family history Living arrangement: At home Living Situation: With family Social History Notes: She smokes about a pack of cigarettes daily. She does not consume alcohol. She uses marijuana occasionally. - POLST Patient has POLST: No POLST Status: Full Code Meds/Allgy - Home Medications Home Medications: Ambulatory Orders Medication Instructions Recorded Confirmed Lisinopril [Prinivil] 5 mg PO DAILY 10/10/20 10/10/20 - Allergies Allergies/Adverse Reactions: Allergies Allergy/AdvReac Type Severity Reaction Status Date / Time No Known Drug Allergies Allergy Verified 04/09/20 03:33 Review of Systems - Constitutional Constitutional: reports: Fever, Chills - Eyes Eyes: denies: Pain, Vision loss, Dipolpia - Ears, Nose & Throat Ears, Nose & Throat: denies: Ear pain, Sore throat - Cardiovascular Cariovascular: denies: Irregular heart rate, Palpitations, Chest pain, Edema, Lightheadedness, Syncope, Exertional dyspnea - Respiratory Respiratory: denies: Cough, Sputum production, Wheezing, SOB at rest, SOB with exertion - Gastrointestinal Gastrointestinal: denies: Abdominal pain, Abdominal distention, Constipation, Diarrhea, Black stools, Nausea, Vomiting, Coffee grounds emesis, Reflux/heartburn - Genitourinary Genitourinary: reports: Urgency, Flank pain - Musculoskeletal Musculoskeletal: denies: Muscle pain, Back pain, Muscle aches, Stiffness - Integumentary Integumentary: denies: Rash, Pruritis, Lesions, Dryness - Neurological Neurological: denies: General weakness, Focal weakness, Headache, Dizziness - Psychiatric Psychiatric: denies: Depression, Anxiety - Endocrine Endocrine: denies: Polyuria, Polydypsia - Hematologic/Lymphatic Hematologic/Lymphatic: denies: Anemia, Bruising, Petechiae Prior Level of Functionality: She is independent of activities of daily living Exam - Vital Signs Vital Signs: Vital Signs x48h Temp Pulse Resp BP Pulse Ox 10/10/20 23:00 38.1 C H 109 H 28 H 144/80 H 98 10/10/20 21:30 38.1 C H 108 H 29 H 131/72 H 98 10/10/20 20:51 38.2 C H 109 H 22 125/73 98 10/10/20 20:00 117 H 32 H 129/93 H 98 10/10/20 19:22 37.6 C 123 H 19 104/52 L 100 - Physical Exam General Appearance: positive: Mild distress, Moderate distress Eyes Bilateral: positive: PERRL, EOMI ENT: positive: Dry mucous membranes Neck: positive: No JVD, Trachea midline Respiratory: positive: Chest non-tender, No respiratory distress, Breath sounds nml. negative: Wheezes, Rales, Rhonchi Cardiovascular: positive: No murmur, Tachycardia Abdomen: positive: Non-tender, Nml bowel sounds, No distention, Guarding, Rebound Back: positive: Nml inspection Skin: positive: Color nml, No rash, Warm, Dry Extremities: positive: Non-tender, Full ROM, Nml appearance, No pedal edema Neurologic/Psychiatric: positive: Oriented x3, Mood/affect nml Conclusion/Plan - Problem List (1) UTI (urinary tract infection) Conclusion/Plan: Patient had a WBC of 18.6 and temperature of 38.1 C. She is also tachycardic. Patient given 1 g of Rocephin IV in the ED. We will continue 1 g Rocephin daily. Tylenol as needed for fever. Urine and blood cultures pending. (2) Ovarian cyst Conclusion/Plan: CT Scan of the abdomen pelvis showed marked enlargement of the left adnexal cyst in a relatively short period of time. It previously measured approximately 5 cm in diameter and now measures 10.[address] in maximum diameter. Dr. Pro with gynecology was contacted by Dr. Rajput in the emergency department. She advised surgery would only take place after resolution of her infection. Qualifiers: Laterality: left Qualified Code(s): N83.202 - Unspecified ovarian cyst, left side (3) Hydronephrosis Conclusion/Plan: Moderate left hydronephrosis and hydroureter is thought to be secondary to extrinsic obstruction by the left adnexal/ovarian cyst. The ovarian cyst would be addressed by gynecology after resolution of patient's urinary tract infection. (4) Hypertension Conclusion/Plan: Lisinopril 5 mg p.o. daily. Will hold for now due to slight acute kidney injury with UTI (5) Acute kidney injury Conclusion/Plan: Likely 2/2 to UTI and hydronephrosis from obstruction by left adnexal/ovarian cyst Patient is currently on IV antibiotics. Gynecology to address cyst after resolution of infection. - Lab Results Fish Bones: 10/10/20 19:40 10/10/20 19:40 Core Measures - Anticipated LOS I expect patient to be DC'd or transferred within 96 hours.: Yes - DVT/VTE - Prophylaxis VTE/DVT Device ordered at admit?: Yes VTE/DVT Prophylaxis med ordered at admit?: Yes
[2020-10-11] MEDS: SODIUM CHLORIDE 0.9% 1,000 ML IV SCH ×3 (01:27→22:25)
[2020-10-11] MEDS: SODIUM CHLORIDE FLUSH 0.9% 10 ML SYRINGE IVP SCH ×4 (01:27→23:58)
[2020-10-11 02:41] LABS: B. PARAPERTUSSIS- RESP PCR PAN NOT DETECTED; B. PERTUSSIS- RESP PCR PANEL NOT DETECTED; C. PNEUMONIAE- RESP PCR PANEL NOT DETECTED; CORONAVIRUS 229E-RESP PCR NOT DETECTED; CORONAVIRUS HKU1-RESP PCR NOT DETECTED; CORONAVIRUS NL63-RESP PCR NOT DETECTED; CORONAVIRUS OC43-RESP PCR NOT DETECTED; HUMAN METAPNEUMOVIRUS NOT DETECTED; INFLUENZA A- RESP PCR PANEL NOT DETECTED; INFLUENZA B - RESP PCR PANEL NOT DETECTED; M. PNEUMONIAE- RESP PCR PANEL NOT DETECTED; PARAINFLUENZA VIRUS 1 NOT DETECTED; PARAINFLUENZA VIRUS 2 NOT DETECTED; PARAINFLUENZA VIRUS 3 NOT DETECTED; PARAINFLUENZA VIRUS 4 NOT DETECTED; RHINOVIRUS/ENTEROVIRUS NOT DETECTED; RSV- RESP PCR PANEL NOT DETECTED; SARS-CoV-2 -RESP PCR PANEL NOT DETECTED
[2020-10-11] MEDS: ACETAMINOPHEN 325 MG TABLET PO PRN ×2 (05:12→12:30)
[2020-10-11 05:52] LABS: BASOPHILS % (AUTO) 0.3 %; EOSINOPHILS % (AUTO) 0.1 %; LYMPHOCYTES # (AUTO) 0.6 10^3/uL (1.5-3.5); LYMPHOCYTES % (AUTO) 3.9 %; MEAN CORPUSCULAR HEMOGLOBIN 28.8 pg (27.0-31.0); MEAN CORPUSCULAR HGB CONC 32.5 g/dL (32.0-36.0); MEAN CORPUSCULAR VOLUME 88.5 fL (81.0-99.0); MEAN PLATELET VOLUME 9.1 fL (7.9-10.8); MONOCYTES # (AUTO) 1.2 10^3/uL (0.0-1.0); MONOCYTES % (AUTO) 8.1 %; NEUTROPHILS % (AUTO) 86.1 %; PLT - PLATELET COUNT 178 10^3/uL (130-450); RED BLOOD COUNT 4.52 10^6/uL (4.20-5.40); RED CELL DISTRIBUTION WIDTH 13.6 % (12.0-15.0); WHITE BLOOD COUNT 15.1 x10^3/uL (4.8-10.8)
[2020-10-11 06:00] LABS: CALCIUM 9.4 mg/dL (8.5-10.3); CREATININE 1.3 mg/dL (0.4-1.0); POTASSIUM 3.6 mmol/L (3.5-5.0)
[2020-10-11] MEDS: lisinopriL 5 MG TABLET PO SCH (08:36)
[2020-10-11] MEDS: cefTRIAXone 2 GM in SODIUM CHLORIDE 0.9% MINIBAG 100 ML IV SCH (08:36)
[2020-10-11] MEDS: ENOXAPARIN 40 MG/0.4 ML SYRINGE SUBQ SCH (08:36)
[2020-10-11] MEDS: SACCHAROMYCES BOULARDII 250 MG CAPSULE PO SCH ×2 (08:36→18:42)
[2020-10-11] MEDS ORDERED: cefTRIAXone 1 GM in SODIUM CHLORIDE 0.9% MINIBAG 100 ML IV SCH (09:00)
--- NOTE | 2020-10-11 09:33 | Ultrasound Report ---
PROCEDURE: Pelvic w/Transvag+Doppler Comp INDICATIONS: LARGE CYSTS CAUSING OBSTRUCTION TECHNIQUE: Real-time scanning was performed of the pelvic organs, with image documentation. Additional endovagi nal scanning was necessary due to incomplete visualization of the adnexal and endometrial structures by transabdominal scanning. COMPARISON: None. FINDINGS: No pathologic free abdominal or pelvic fluid. Uterus: Uterus is normal in size at 8 x 4.6 x 3.4 cm. The endometrium measures 9 mm in combined thi ckness. No endometrial mass or fluid is seen. No discrete uterine fibroid. Ovaries: Right ovary measures 5.2 x 3.8 x 4 cm in size and contains a complex cyst measures 3 x 3 x 3.1 cm in size. Large complex appearing cystic structure is seen in left adnexa measures 10 x 8.4 x 9 cm in size. Arterial flow is seen in bilateral ovaries. IMPRESSION: 1. Complex bilateral ovarian cysts as described above which could represent endometriomas versus hemo rrhagic cysts. Sonographic follow-up is recommended. 2. Normal-appearing endometrium and uterus. Agree with preliminary reading. Reviewed by: Guille Chaney MD on 10/11/2020 9:32 AM PDT Approved by: Guille Chaney MD on 10/11/2020 9:32 AM PDT Station ID: [id number]
[2020-10-11] MEDS: NICOTINE 14 MG PATCH TOP SCH (11:13)
[2020-10-11] MEDS: IBUPROFEN 400 MG TABLET PO PRN ×2 (14:39→23:59)
--- NOTE | 2020-10-11 14:43 | PHARMACY PROGRESS NOTE ---
- Best Possible Medication History Admit Date and Time: 10/11/20 0049 Processed by: Nursing Medication History completed: Yes As the person ultimately responsible for medication therapy, providers are able to order a medication from an existing home medication list in [facility] via the "Reconcile Routine" prior to Confirmation of that medication by child support investigator. Such practice is discouraged except when the physician, in their clinical judgment, deems that a medical need exists for a medication without regard to previous use.
[2020-10-12 05:15] LABS: BASOPHILS # (AUTO) 0.1 10^3/uL (0.0-0.1); BASOPHILS % (AUTO) 0.4 %; EOSINOPHILS # (AUTO) 0.2 10^3/uL (0.0-0.7); EOSINOPHILS % (AUTO) 1.1 %; HCT - HEMATOCRIT 38.5 % (37.0-47.0); HGB - HEMOGLOBIN 12.4 g/dL (12.0-16.0); LYMPHOCYTES # (AUTO) 1.1 10^3/uL (1.5-3.5); LYMPHOCYTES % (AUTO) 8.5 %; MEAN CORPUSCULAR HEMOGLOBIN 28.6 pg (27.0-31.0); MEAN CORPUSCULAR HGB CONC 32.2 g/dL (32.0-36.0); MEAN CORPUSCULAR VOLUME 88.9 fL (81.0-99.0); MEAN PLATELET VOLUME 9.5 fL (7.9-10.8); MONOCYTES # (AUTO) 1.1 10^3/uL (0.0-1.0); MONOCYTES % (AUTO) 8.5 %; NEUTROPHILS # (AUTO) 10.7 10^3/uL (1.5-6.6); NEUTROPHILS % (AUTO) 80.5 %; PLT - PLATELET COUNT 181 10^3/uL (130-450); RED BLOOD COUNT 4.33 10^6/uL (4.20-5.40); RED CELL DISTRIBUTION WIDTH 13.6 % (12.0-15.0); WHITE BLOOD COUNT 13.2 x10^3/uL (4.8-10.8)
[2020-10-12 05:24] LABS: CALCIUM 9.7 mg/dL (8.5-10.3); CREATININE 1.1 mg/dL (0.4-1.0); POTASSIUM 3.7 mmol/L (3.5-5.0)
[2020-10-12 07:34] VITALS: BP 114/70
[2020-10-12] MEDS ORDERED: polyethylene glycoL 3350 17 GM PACKET PO SCH (09:00)
--- NOTE | 2020-10-12 09:26 | DISCHARGE SUMMARY ---
Discharge Summary Admit Date: 10/11/20 Discharge Date: 10/12/20 Discharging Provider: Shmuel Poe Discharge Disposition: 07 Against Medical Advice Discharge Facility Name: home - DIAGNOSES Discharge Diagnoses with Status of Each Condition: (1)AMA Patient request AMA to leave hospital on today morning. I discussed the risk to sign AMA. pt state she understood the risk, and she will see OBGYN KIRSTEN. pt is prescribed antibiotics for her UTI (2) UTI (urinary tract infection) improved. pt has no fever on today, WBC is trended down. blood culture is negative for bacteremia. UA culture show positive Ecoli. pt request AMA. pt is prescribed antibiotics (3) Ovarian cyst Discussed the image study result with pt. Patient was found to have remarkable large and grow fast of left adnexal cyst. Transvaginal US show complex bilateral ovarian cysts which could represent endometriomas versus hemorrhagic cysts. Pt understood the image study result. pt's questions were answered. pt was ordered to have OBGYN consult. PT signed AMA. pt state she will see OBGYN KIRSTEN as out- pt. (4) Hydronephrosis improved. pt has no nausea, vomiting or abdominal pain. Pt signed AMA. (5) Hypertension stable. (6) Acute kidney injury resolved. (7)sepsis pt had fever, Tachycardia, tachypnea, elevated WBC at the admission. pt was found to have UTI. pt has significant improved. No fever on today, WBC is trended down, and Tachypnea and tachycardia are resolved. blood culture is negative. Patient is prescribed antibiotics. Pt signed AMA. - HPI History of Present Illness: refer from Dr. Monge's HPI on 10/11/20 Patient is a 40-year-old female with medical history significant for hypertension, history of kidney stones who presented to the ED with complaint of left flank pain and chills for the past 3 days. She has also been experiencing some urgency. Work-up in the ED showed a white blood cell count of 18.6. She had a temperature of 38.2 and was tachycardic with a heart rate of 117. Further work-up included a UA which was indicative of a UTI. As a result she was presented for admission for further treatment. At bedside she denies chest pain, dyspnea, abdominal pain, nausea, vomiting. Rest of her history is unremarkable. She had a CT of the abdomen/pelvis which was negative for stone but showed a large left adnexal/ovarian cyst measuring 10.7 cm in diameter. There was also a moderate amount of hydronephrosis on the left side thought to be secondary to obstruction by the cyst. - HOSPITAL COURSE Hospital Course: pt was admitted for the complaint of left flank pain and chills for the past 3 days. Patient was found to have fever, elevated WBC, tachypnea, tachycardia, patient was found to have sepsis. Patient was treated with intravenous antibi otics and intravenous IV fluids. pt Has no fever on today, patient's WBC is trended down after pt was treated in hospital. Patient was also found to have remarkable large and grow fast of left adnexal cyst. Transvaginal US show complex bilateral ovarian cysts which could represent endometriomas versus hemorrhagic cysts. Unfortunately pt request to sign AMA and left hospital. Discussed the risk to sign AMA for pt, pt verbally stated she understood and insistent to sign and left hospital. pt is prescribed antibiotics. pt state she will see OBGYN KIRSTEN. - ALLERGIES Allergies/Adverse Reactions: Allergies Allergy/AdvReac Type Severity Reaction Status Date / Time No Known Drug Allergies Allergy Verified 04/09/20 03:33 - MEDICATIONS Home Medications: Ambulatory Orders Medication Instructions Recorded Confirmed Lisinopril [Prinivil] 5 mg PO DAILY 10/10/20 10/10/20 cefUROXime axetiL [Ceftin] 500 mg PO Q12H 5 Days #20 tablet 10/12/20 - PHYSICAL EXAM AT DISCHARGE General Appearance: positive: No acute distress, Alert. negative: Lethargic Eyes Bilateral: positive: Normal inspection ENT: positive: ENT inspection nml Neck: positive: Nml inspection, Trachea midline. negative: Tracheal deviation Respiratory: positive: Chest non-tender, No respiratory distress. negative: Wheezes Cardiovascular: positive: Other (pt quickly left hospital, I can not do further assessment for pt.) Skin: positive: Color nml. negative: Cyanosis, Diaphoresis, Pallor Extremities: positive: Non-tender, Full ROM, Nml appearance Neurologic/Psychiatric: positive: Oriented x3, Motor nml, Sensation nml, Mood/affect nml. negative: Weakness, Sensory loss, Facial droop, Slurred/abnml speech - LABS Result Diagrams: 10/12/20 04:20 10/12/20 04:20 - FOLLOW UP Follow Up: Pt signed AMA and left hospital. pt state she will see OBGYN as out-pt KIRSTEN - TIME SPENT Time Spent in Discharge (Minutes): 30
[2020-10-12] MEDS: SACCHAROMYCES BOULARDII 250 MG CAPSULE PO SCH (09:36)
[2020-10-12] MEDS: NICOTINE 14 MG PATCH TOP SCH (09:36)
[2020-10-12] MEDS: ENOXAPARIN 40 MG/0.4 ML SYRINGE SUBQ SCH (09:36)
[2020-10-12] MEDS: SODIUM CHLORIDE 0.9% 1,000 ML IV SCH (09:36)
[2020-10-12] MEDS: cefTRIAXone 2 GM in SODIUM CHLORIDE 0.9% MINIBAG 100 ML IV SCH (09:36)
[2020-10-12] MEDS: lisinopriL 5 MG TABLET PO SCH (09:36)
[2020-10-12] MEDS: SODIUM CHLORIDE FLUSH 0.9% 10 ML SYRINGE IVP SCH (09:37)
== END 2020-10-12 09:30 | disposition left against medical advice (07) | DRG 872 ==
LOC: ED 19:14 → MS3 10-11 00:49
PROVIDERS: ADMIT Internal Medicine; ATTEND Nurse Practitioner Gerontology
DX: A41.51 Sepsis due to Escherichia coli [E. coli] (principal); N39.0 Urinary tract infection, site not specified; N13.30 Unspecified hydronephrosis; N17.9 Acute kidney failure, unspecified; R65.20 Severe sepsis without septic shock; Z53.29 Procedure and treatment not carried out because of patient's decision for other reasons; N83.202 Unspecified ovarian cyst, left side; N83.201 Unspecified ovarian cyst, right side; I10 Essential (primary) hypertension; F17.210 Nicotine dependence, cigarettes, uncomplicated; Z87.442 Personal history of urinary calculi; Z79.899 Other long term (current) drug therapy
CPT/HCPCS: 0202U; 36415; 74176; 76830; 76856; 80048; 80053; 81001; 81025; 83605; 83690; 85025; 85610; 85730; 86304; 87040; 87077; 87086; 87181; 93975; 96365; 96375; 99284; 99285; A9270; J1650; 81003

== ENCOUNTER 2023-12-14 05:57 | Emergency (ER) | payer MEDICAID ==
--- NOTE | 2023-12-14 06:07 | ED Physician Documentation ---
PD HPI UPPER EXT INJURY - Stated complaint Stated Complaint: RT HAND INJ - Chief complaint Chief Complaint: Ext Problem - History obtained from History obtained from: Patient - Additonal information Additional information: HPI from patient. Patient c/o sudden onset right hand pain at approximately 5:30 PM yesterday. Patient was leaving a store when she had FOOSH. She is right hand dominant. Pain has and swelling has steadily worsened, prompting her to come to ED at this time. Denies numbness, weakness. Denies other injury including head, neck. Pain is exacerbated with palpation, movement (particularly flexion or full extension at PIP joints of right 2nd-5th fingers). PD PAST MEDICAL HISTORY - Past Medical History Past Medical History: Yes Cardiovascular: Hypertension Respiratory: None Neuro: None Endocrine/Autoimmune: None GI: Cholelithiasis, Other [employer]ICE: Ovarian cysts : Kidney stones HEENT: None Psych: None Musculoskeletal: None Derm: None - Past Surgical History Past Surgical History: Yes - Present Medications Home Medications: Ambulatory Orders Medication Instructions Recorded Confirmed lisinopriL [Prinivil] 5 mg PO DAILY 10/10/20 10/10/20 cefuroxime axetiL [Ceftin] 500 mg PO Q12H 5 Days #20 tablet 10/12/20 - Allergies Allergies/Adverse Reactions: Allergies Allergy/AdvReac Type Severity Reaction Status Date / Time No Known Drug Allergies Allergy Verified 12/14/23 06:06 - Social History Does the pt smoke?: Yes Smoking Status: Current every day smoker Does the pt drink ETOH?: No Does the pt have substance abuse?: Yes - Immunizations Immunizations are current?: Yes - POLST Patient has POLST: No POLST Status: Full Code PD ED PE NORMAL - Vitals Vital signs reviewed: Yes - General General: Alert and oriented X 3, No acute distress, Well developed/nourished - Derm Derm: Normal color PD ED PE EXPANDED - Extremities Extremities: Other (mild-moderate generalized swelling of right hand ) OCTAVIA UE/Hands Visual: 1 - bruising (faint bruising), tenderness Results - Vitals Vitals: Vital Signs - 24 hr 12/14/23 06:03 Temperature 36.5 C Heart Rate 83 Respiratory 16 Rate Blood Pressure 201/111 H O2 Saturation 100 Oxygen O2 Source Room air - Rads (name of study) right hand xrays Relevant Findings:: Prelim report reviewed, EMP independent interpretation of test (I reviewed these images and my interpretation (independent of radiologist's reading which was not available until after patient was discharged) is no acute abnormality including no evidence of fracture, dislocation), See rad report Procedures - Splint (location) - Minor Upper extremity right Splint applied by: Nurse Type of splint: Fiberglass, Other (volar) Other: Patient tolerated well, No complications, Neurovascular intact PD Medical Decision Making - ED course Complexity details: reviewed results, re-evaluated patient, considered diff erential, d/w patient ED course: Unremarkable plain-film xrays of right hand. Ring on patient's right fourth finger was removed by ED RN, as significant swelling of the digit precluded removal without cutting the ring. Splint placed for comfort and to speed healing via immobilization. Results reviewed with patient, return precautions discussed. She declines analgesics (in ED as well as Rx), as she took tylenol earlier and has had adequate relief with this. Departure - Departure Disposition: 01 Home, Self Care Clinical Impression: Hand sprain Qualifiers: Encounter type: initial encounter Laterality: right Qualified Code(s): S63.91XA - Sprain of unspecified part of right wrist and hand, initial encounter Condition: Good Instructions: ED Sprain Hand Comments: There was no evidence of injury on the x-rays; specifically, no evidence of fracture or dislocation. I recommend that you keep the splint in place for at least the next 3 days; this is to speed healing by keeping the injured area still. You can use the splint beyond the next 3 days if you are continuing to have any significant discomfort with movement of the hand when you remove the splint. However, if this is the case (you do not feel significantly improved within 2 to 3 days), you should contact your primary care provider to arrange for next available appointment for follow-up/reevaluation of the injury. Discharge Date/Time: 12/14/23 06:59
[2023-12-14 06:09] VITALS: BP 201/111; O2SAT 100
--- NOTE | 2023-12-14 08:03 | XRAY Report ---
PROCEDURE: Hand 3+V RT INDICATIONS: fall TECHNIQUE: 3 views of the hand(s) acquired. COMPARISON: None. FINDINGS: Bones: No fractures or dislocations. No suspicious bony lesions. Soft tissues: No suspicious soft tissue calcifications or masses. IMPRESSION: No acute bony abnormality. Reviewed by: Eri Mackenzie MD, PhD on 12/14/2023 8:02 AM PDT Approved by: Eri Mackenzie MD, PhD on 12/14/2023 8:02 AM PDT Station ID: [id number]
== END 2023-12-14 06:59 | disposition home or self-care (01) ==
LOC: ED 05:57
DX: S63.91XA Sprain of unspecified part of right wrist and hand, initial encounter (principal); W18.39XA Other fall on same level, initial encounter; Y92.512 Supermarket, store or market as the place of occurrence of the external cause; I10 Essential (primary) hypertension; Z87.19 Personal history of other diseases of the digestive system; Z87.442 Personal history of urinary calculi; F17.200 Nicotine dependence, unspecified, uncomplicated
CPT/HCPCS: 29125; 99283